=== PATIENT | male | born 1970 | race Caucasian/White ===

== ENCOUNTER 2018-06-24 02:43 | Inpatient (IN) | payer MEDICAID ==
[~2018-06-24] VITALS: Ht 180.3 cm; Wt 81.8 kg
[2018-06-24] MEDS ORDERED: LISINOPRIL2.5 MG (02:46)
[2018-06-24] MEDS ORDERED: GEODON60 MG PO (02:47)
[2018-06-24] MEDS ORDERED: GEODON20 MG (02:47)
[2018-06-24 03:34] LABS: UDS - AMPHET NEGATIVE QUAL (NEGATIVE); UDS - BARB NEGATIVE QUAL (NEGATIVE); UDS - BENZO NEGATIVE QUAL (NEGATIVE); UDS - COCAINE NEGATIVE QUAL (NEGATIVE); UDS - OPIATE NEGATIVE QUAL (NEGATIVE); UDS - PCP NEGATIVE QUAL (NEGATIVE); UDS - THC NEGATIVE QUAL (NEGATIVE)
[2018-06-24 04:34] LABS: BASOPHILS 0.1 % (0-2); EOSINOPHILS 0.7 % (0-7); HEMATOCRIT 35.4 % (42.0-54.0); HEMOGLOBIN 13.2 g/dL (13.5-17.5); IMMATURE GRANULOCYTES 0.8 % (0-5); LYMPHOCYTES 9.1 % (15-50); MCH 32.7 pg (26.0-34.0); MCHC 37.3 g/dL (31.0-37.0); MCV 87.6 fL (80.0-100.0); MEAN PLATELET VOLUME 8.9 fL (7.4-10.4); MONOCYTES 6.2 % (2-11); NEUTROPHILS 83.1 % (40-80); RBC 4.04 10x6/uL (4.20-6.10); RDW 12.3 % (11.5-14.5); WBC 14.5 10x3/uL (4.8-10.8)
[2018-06-24 04:34] LABS: APPEARANCE CLEAR (CLEAR); COLOR STRAW (YELLOW)
[2018-06-24 04:35] LABS: PLATELET COUNT 223 10x3/uL (130-400)
[2018-06-24 04:35] LABS: BILIRUBIN NEGATIVE (NEGATIVE); GLUCOSE 50 mg/dL (NEGATIVE); KETONE NEGATIVE (NEGATIVE); NITRITE NEGATIVE (NEGATIVE); PROTEIN NEGATIVE (NEGATIVE); UROBILINOGEN NORMAL (NORMAL)
[2018-06-24 04:50] LABS: ALKALINE PHOSPHATASE 106 U/L (46-116); ALT (SGPT) 37 U/L (10-68); BILIRUBIN - TOTAL 0.35 mg/dL (0.2-1.3); CALC OSMOLALITY 265 mosm/kg (275-300); CALCIUM 8.3 mg/dL (8.5-10.1); CARBON DIOXIDE 20.2 mmol/L (21.0-32.0); CHLORIDE - SERUM 100 mmol/L (98-107); CREATININE - SERUM 0.9 mg/dL (0.6-1.3); GLUCOSE 106 mg/dL (74-106); POTASSIUM - SERUM 3.8 mmol/L (3.5-5.1); PROTEIN - SERUM 6.7 g/dL (6.4-8.2); SODIUM 133 mmol/L (136-145); UREA NITROGEN 13 mg/dL (7-18); eGFR NON AFRICAN AMERICAN > 90 mL/min (90-120)
[2018-06-24 05:06] LABS: CKMB 5.3 U/L (0.0-3.6); CREATINE KINASE 358 UL (21-232)
[2018-06-24 05:09] LABS: TROPONIN-I 0.142 ng/mL (0.000-0.060)
[2018-06-24 07:01] LABS: BASOPHILS 0.1 % (0-2); EOSINOPHILS 0.6 % (0-7); HEMATOCRIT 34.3 % (42.0-54.0); HEMOGLOBIN 12.7 g/dL (13.5-17.5); IMMATURE GRANULOCYTES 0.5 % (0-5); LYMPHOCYTES 9.9 % (15-50); MCH 32.2 pg (26.0-34.0); MCV 86.8 fL (80.0-100.0); MEAN PLATELET VOLUME 8.9 fL (7.4-10.4); NEUTROPHILS 82.9 % (40-80); PLATELET COUNT 255 10x3/uL (130-400); RBC 3.95 10x6/uL (4.20-6.10); RDW 12.4 % (11.5-14.5); WBC 16.7 10x3/uL (4.8-10.8)
[2018-06-24 07:31] LABS: ALBUMIN 2.9 g/dL (3.4-5.0); ALKALINE PHOSPHATASE 104 U/L (46-116); ALT (SGPT) 38 U/L (10-68); BILIRUBIN - TOTAL 0.41 mg/dL (0.2-1.3); CALC OSMOLALITY 266 mosm/kg (275-300); CALCIUM 8.2 mg/dL (8.5-10.1); CARBON DIOXIDE 18.2 mmol/L (21.0-32.0); CHLORIDE - SERUM 101 mmol/L (98-107); CKMB 4.3 U/L (0.0-3.6); CREATININE - SERUM 0.8 mg/dL (0.6-1.3); GLUCOSE 101 mg/dL (74-106); MAGNESIUM - SERUM 1.8 mg/dL (1.8-2.4); POTASSIUM - SERUM 4.1 mmol/L (3.5-5.1); PROTEIN - SERUM 6.5 g/dL (6.4-8.2); SODIUM 134 mmol/L (136-145); UREA NITROGEN 10 mg/dL (7-18); eGFR NON AFRICAN AMERICAN > 90 mL/min (90-120)
[2018-06-24 07:33] LABS: CREATINE KINASE 454 UL (21-232)
[2018-06-24 11:20] LABS: % SATURATION 72 % (15-55); IRON 183 ug/dl (35-150); TOTAL IRON BIND CAPACITY 251 ug/dl (260-445); UNSAT IRON BIND CAPACITY 68 ug/dl (150-375)
[2018-06-24 11:33] LABS: INR 1.06 (0.85-1.17); PROTIME 13.3 SECONDS (11.6-15.0)
[2018-06-24 12:08] VITALS: BP 147/74
[2018-06-24 12:48] VITALS: BP 148/76; Ht 180.3 cm; Wt 81.8 kg
[2018-06-24 17:29] VITALS: BP 175/92
[2018-06-24 20:00] VITALS: BP 143/93
[2018-06-25 00:30] VITALS: BP 143/92
[2018-06-25 04:30] VITALS: BP 141/97
[2018-06-25 06:11] LABS: BASOPHILS 0 % (0-2); EOSINOPHILS 2.1 % (0-7); HEMATOCRIT 29.8 % (42.0-54.0); HEMOGLOBIN 10.6 g/dL (13.5-17.5); IMMATURE GRANULOCYTES 0.5 % (0-5); LYMPHOCYTES 14.6 % (15-50); MCH 31.9 pg (26.0-34.0); MCHC 35.6 g/dL (31.0-37.0); MEAN PLATELET VOLUME 8.8 fL (7.4-10.4); MONOCYTES 8.3 % (2-11); NEUTROPHILS 74.5 % (40-80); RBC 3.32 10x6/uL (4.20-6.10); RDW 12.6 % (11.5-14.5)
[2018-06-25 06:12] LABS: MCV 89.8 fL (80.0-100.0); PLATELET COUNT 155 10x3/uL (130-400); WBC 6.2 10x3/uL (4.8-10.8)
[2018-06-25 06:35] LABS: CALC OSMOLALITY 273 mosm/kg (275-300); CALCIUM 7.9 mg/dL (8.5-10.1); CARBON DIOXIDE 25.3 mmol/L (21.0-32.0); CHLORIDE - SERUM 105 mmol/L (98-107); CKMB 1.8 U/L (0.0-3.6); CREATINE KINASE 324 UL (21-232); CREATININE - SERUM 0.9 mg/dL (0.6-1.3); GLUCOSE 100 mg/dL (74-106); POTASSIUM - SERUM 4.2 mmol/L (3.5-5.1); SODIUM 137 mmol/L (136-145); UREA NITROGEN 13 mg/dL (7-18); eGFR NON AFRICAN AMERICAN > 90 mL/min (90-120)
[2018-06-25 09:14] VITALS: BP 147/94
[2018-06-25 12:17] VITALS: BP 151/106
[2018-06-25 13:12] LABS: FOLATE (FOLIC ACID) - SERUM 10.5 ng/mL (>3.0)
[2018-06-25 16:33] VITALS: BP 173/98
--- NOTE | 2018-06-25 16:36 | MORECARE ---
CASE MANAGEMENT DISCHARGE SUMMARY PATIENT: MARCO RIVERS UNIT: [id number] ADM DATE: 06/24/18 AGE: 48 : 66 SEX: M ROOM/BED: D.2217 AUTHOR: SWAPNA JOHNSTON PHYSICIAN: REFERRING PHYSICIAN: POPPY WHITE MD DATE OF SERVICE: 06/25/18 Discharge Plan Patient Name: MARCO RIVERS Facility: [facility]:[place] : 1970 Planned Disposition: Anticipated Discharge Date: Discharge Date: Expected LOS: Initial Reviewer: [email or web address] Initial Review Date: 06/24/2018 Generated: 06/25/18 5:35 pm Patient Name: MARCO RIVERS Page 04433 at 1636 All edits/amendments must be made on the electronic document DICTATION DATE: 06/25/18 163 PASSENGER FLAGMAN: REBEKAH 06/25/18 1635 RPT#: [id number] DC DATE: STATUS: ADM IN [facility] [address] [place] [address] END OF REPORT
--- NOTE | 2018-06-25 16:44 | MORECARE ---
CASE MANAGEMENT DISCHARGE SUMMARY PATIENT: MARCO RIVERS UNIT: [id number] ADM DATE: 06/24/18 AGE: 48 : 66 SEX: M ROOM/BED: D.2217 AUTHOR: SWAPNA JOHNSTON PHYSICIAN: REFERRING PHYSICIAN: POPPY WHITE MD DATE OF SERVICE: 06/25/18 Discharge Plan Patient Name: MARCO RIVERS [facility] : 1970 Planned Disposition: Anticipated Discharge Date: Discharge Date: Expected LOS: Initial Reviewer: [email or web address] Initial Review Date: 06/24/2018 Generated: 06/25/18 5:43 pm DCPIA - Discharge Planning Initial Assessment Updated by [email or web address]: Jie Naranjo on 06/25/18 4:41 pm * Is the patient Alert and Oriented? Yes * PCP NICHOLE MARTELL * [facility] * Preadmission Environment Homeless * ADLs Independent * Equipment None * List name and contact numbers for known caregivers / representatives who currently or will assist patient after discharge: MALIHA SIMMS JOSH ([phone]) * Verbal permission to speak to the caregivers and representatives has been obtained from the patient. N/A * Community resources currently utilized None * Additional services required to return to the preadmission environment? Yes * Can the patient safely return to the preadmission environment? Yes * Has this patient been hospitalized within the prior 30 days at any hospital? No Last DP export: 06/25/18 3:35 pm Patient Name: MARCO RIVERS Page 19884 at 1644 All edits/amendments must be made on the electronic document DICTATION DATE: 06/25/181642 MANAGER TALENT ACQUISITION: REBEKAH 06/25/181642 RPT#: [id number] DC DATE: STATUS: ADM IN [facility] [address] [place] [address] END OF REPORT
--- NOTE | 2018-06-25 16:52 | MORECARE ---
CASE MANAGEMENT DISCHARGE SUMMARY PATIENT: MARCO RIVERS UNIT: [id number] ADM DATE: 06/24/18 AGE: 48 : 66 SEX: M ROOM/BED: D.2217 AUTHOR: PRESTON,DOC PHYSICIAN: REFERRING PHYSICIAN: POPPY WHITE MD DATE OF SERVICE: 06/25/18 Discharge Plan Patient Name: MARCO RIVERS Facility: [facility]:[place] : 1970 Planned Disposition: Anticipated Discharge Date: Discharge Date: Expected LOS: Initial Reviewer: [email or web address] Initial Review Date: 06/24/2018 Generated: 06/25/18 5:52 pm Comments DCP- Discharge Planning Updated by [email or web address]: Jie Naranjo on 06/25/18 3:[address] Patient Name: MARCO RIVERS Admission Status: ER Accout number: [id number] Admission Date: 06-24-2018 : 1970 Admission Diagnosis: Attending: POPPY WHITE Current LOS: 1 Anticipated DC Date: Planned Disposition: Primary Insurance: MEDICAID [place] Discharge Planning Comments: CM met with patient to complete initial dc planning assessment. CM educated patient on the CM role and verbal consent given by patient to complete assessment. Patient stated that is mailing address is [address] [place] [address], but he does not stay there. I asked if he was homeless and he said yes. He was in long term a week ago and was suppose to go to [facility], but they never showed up/ or called him??? I asked him if he has any family he stated no, I asked him if there was any friend he could stay with and he said Kody Scales, but will need a taxi. He denies any street drugs, but states he has a ETOH problems and would like help. I attempted to call the [facility], but did not get an answer. He stated he gets a $771.00 check a month. He stated he is on disability for Bipolar Depression. I will try [facility] tomorrow to see if he is still approved for there for treatment. He stated that they approved him when he was in [place]. Patient denied known discharge needs at this time. CM will continue to follow and will assist as needed with dc plans/needs. Fastener Technologist: Jie Naranjo DCPIA - Discharge Planning Initial Assessment Updated by [email or web address]: Jie Naranjo on 06/25/18 4:41 pm * Is the patient Alert and Oriented? Yes * PCP NICHOLE MARTELL * [facility]acy [facility] * Preadmission Environment Homeless * ADLs Independent * Equipment None * List name and contact numbers for known caregivers / representatives who currently or will assist patient after discharge: KODY CHON DEMI JOSH ([phone]) * Verbal permission to speak to the caregivers and representatives has been obtained from the patient. N/A * Community resources currently utilized None * Additional services required to return to the preadmission environment? Yes * Can the patient safely return to the preadmission environment? Yes * Has this patient been hospitalized within the prior 30 days at any hospital? No Last DP export: 06/25/18 3:44 pm Patient Name: MARCO RIVERS Page 28529 at 1652 All edits/amendments must be made on the electronic document DICTATION DATE: 06/25/181650 SILK SCREEN LAYOUT DRAFTER: REBEKAH 06/25/181650 RPT#: [id number] DC DATE: STATUS: ADM IN [facility] [address] [place] [address] END OF REPORT
[2018-06-25 20:03] VITALS: BP 146/86
[2018-06-26 00:23] VITALS: BP 150/82
[2018-06-26 05:18] LABS: BASOPHILS 0.1 % (0-2); EOSINOPHILS 3.7 % (0-7); HEMATOCRIT 28.1 % (42.0-54.0); HEMOGLOBIN 9.7 g/dL (13.5-17.5); IMMATURE GRANULOCYTES 0.6 % (0-5); LYMPHOCYTES 15.9 % (15-50); MCH 31.5 pg (26.0-34.0); MCHC 34.5 g/dL (31.0-37.0); MCV 91.2 fL (80.0-100.0); MEAN PLATELET VOLUME 8.7 fL (7.4-10.4); MONOCYTES 8.2 % (2-11); NEUTROPHILS 71.5 % (40-80); PLATELET COUNT 158 10x3/uL (130-400); RBC 3.08 10x6/uL (4.20-6.10); RDW 12.4 % (11.5-14.5); WBC 6.9 10x3/uL (4.8-10.8)
[2018-06-26 05:19] VITALS: BP 145/94
[2018-06-26 05:43] LABS: CALC OSMOLALITY 274 mosm/kg (275-300); CALCIUM 7.8 mg/dL (8.5-10.1); CARBON DIOXIDE 25.4 mmol/L (21.0-32.0); CHLORIDE - SERUM 106 mmol/L (98-107); CREATINE KINASE 295 UL (21-232); CREATININE - SERUM 0.9 mg/dL (0.6-1.3); GLUCOSE 97 mg/dL (74-106); POTASSIUM - SERUM 4.1 mmol/L (3.5-5.1); SODIUM 138 mmol/L (136-145); UREA NITROGEN 10 mg/dL (7-18); eGFR NON AFRICAN AMERICAN > 90 mL/min (90-120)
[2018-06-26 08:04] VITALS: BP 148/91
--- NOTE | 2018-06-26 11:40 | MORECARE ---
CASE MANAGEMENT DISCHARGE SUMMARY PATIENT: MARCO RIVERS UNIT: [id number] ADM DATE: 06/24/18 AGE: 48 : 66 SEX: M ROOM/BED: D.2217 AUTHOR: PRESTON,DOC PHYSICIAN: REFERRING PHYSICIAN: POPPY WHITE MD DATE OF SERVICE: 06/26/18 Discharge Plan Patient Name: MARCO RIVERS Facility: [facility]:[place] : 1970 Planned Disposition: Anticipated Discharge Date: Discharge Date: Expected LOS: Initial Reviewer: [email or web address] Initial Review Date: 06/24/2018 Generated: 06/26/18 12:40 pm Comments DCP- Discharge Planning Updated by [email or web address]: Jie Naranjo on 06/26/18 10:[address] SPOKE WITH ALPHONSO AT [facility] SHE STATED THAT THEY COULD SEE HIM ON A OUTPATIENT BASIS, BUT THEY DO NOT HAVE FUNDING FOR NICHOLE PATIENTS AT THIS TIME. SHE SENT ME A SCREENING TOOL FOR THE PATIENT FOR AN OUTPATIENT BASIS IF NEEDED DCP- Discharge Planning Updated by [email or web address]: Jie Naranjo on 06/25/18 3:[address] Patient Name: MARCO RIVERS Admission Status: ER Accout number: [id number] Admission Date: 06-24-2018 : 1970 Admission Diagnosis: Attending: POPPY WHITE Current LOS: 1 Anticipated DC Date: Planned Disposition: Primary Insurance: MEDICAID [place] Discharge Planning Comments: CM met with patient to complete initial dc planning assessment. CM educated patient on the CM role and verbal consent given by patient to complete assessment. Patient stated that is mailing address is [address] [place] [address], but he does not stay there. I asked if he was homeless and he said yes. He was in long term a week ago and was suppose to go to [facility], but they never showed up/ or called him??? I asked him if he has any family he stated no, I asked him if there was any friend he could stay with and he said Kody Walker, but will need a taxi. He denies any street drugs, but states he has a ETOH problems and would like help. I attempted to call the [facility], but did not get an answer. He stated he gets a $771.00 check a month. He stated he is on disability for Bipolar Depression. I will try [facility] tomorrow to see if he is still approved for there for treatment. He stated that they approved him when he was in [place]. Patient denied known discharge needs at this time. CM will continue to follow and will assist as needed with dc plans/needs. Insurance Job Titles: Jie Naranjo DCPIA - Discharge Planning Initial Assessment Updated by [email or web address]: Jie Naranjo on 06/25/18 4:41 pm * Is the patient Alert and Oriented? Yes * PCP NICHOLE MARTELL * Pharmacy [facility] * Preadmission Environment Homeless * ADLs Independent * Equipment None * List name and contact numbers for known caregivers / representatives who currently or will assist patient after discharge: KODY GIVENS DEMI MAY ([phone]) * Verbal permission to speak to the caregivers and representatives has been obtained from the patient. N/A * Community resources currently utilized None * Additional services required to return to the preadmission environment? Yes * Can the patient safely return to the preadmission environment? Yes * Has this patient been hospitalized within the prior 30 days at any hospital? No Last DP export: 06/25/18 3:52 pm Patient Name: MARCO RIVERS Page 83157 at 1140 All edits/amendments must be made on the electronic document DICTATION DATE: 06/26/18 113 CEMENT FINISHING SUPERVISOR: REBEKAH 06/26/18 113 RPT#: [id number] DC DATE: STATUS: ADM IN [facility] [address] [place] [address] END OF REPORT
[2018-06-26 13:09] VITALS: BP 157/100
[2018-06-26 21:08] VITALS: BP 134/86
[2018-06-27] VITALS: BP 155/91
[2018-06-27 03:00] VITALS: BP 144/82
[2018-06-27 05:42] LABS: BASOPHILS 0 % (0-2); EOSINOPHILS 0.1 % (0-7); HEMATOCRIT 23.6 % (42.0-54.0); HEMOGLOBIN 8.4 g/dL (13.5-17.5); IMMATURE GRANULOCYTES 0.7 % (0-5); LYMPHOCYTES 5.1 % (15-50); MCH 32.1 pg (26.0-34.0); MCHC 35.6 g/dL (31.0-37.0); MCV 90.1 fL (80.0-100.0); MEAN PLATELET VOLUME 8.7 fL (7.4-10.4); MONOCYTES 4.9 % (2-11); NEUTROPHILS 89.2 % (40-80); PLATELET COUNT 154 10x3/uL (130-400); RBC 2.62 10x6/uL (4.20-6.10); RDW 12.5 % (11.5-14.5); WBC 8.6 10x3/uL (4.8-10.8)
[2018-06-27 05:58] LABS: CALC OSMOLALITY 278 mosm/kg (275-300); CALCIUM 7.8 mg/dL (8.5-10.1); CARBON DIOXIDE 24.8 mmol/L (21.0-32.0); CHLORIDE - SERUM 108 mmol/L (98-107); CREATININE - SERUM 0.9 mg/dL (0.6-1.3); GLUCOSE 136 mg/dL (74-106); POTASSIUM - SERUM 4.6 mmol/L (3.5-5.1); SODIUM 139 mmol/L (136-145); UREA NITROGEN 10 mg/dL (7-18); eGFR NON AFRICAN AMERICAN > 90 mL/min (90-120)
[2018-06-27 09:09] VITALS: BP 165/96
--- NOTE | 2018-06-27 11:49 | OP ---
PATIENT NAME: MARCO RIVERS MEDICAL RECORD: [id number] :66 LOCATION:D.MS [facility]2217 ADMISSION DATE:06/24/18 SURGEON: MIK JAIN DO DATE OF OPERATION: 06/26/2018 PROCEDURE PERFORMED: Right reverse total shoulder arthroplasty for fracture. PREOPERATIVE DIAGNOSIS: Right proximal humerus fracture, comminuted, and displaced 100%. POSTOPERATIVE DIAGNOSIS: Right proximal humerus fracture, comminuted, and displaced 100%. INDICATIONS: Mr. Rivers is a 48-year-old male who he says fell or jumped off a bridge sometime Friday morning or Friday evening and showed up to the hospital, he had suffered a severe comminuted right proximal humerus fracture as mentioned. On initial x-rays, it looks as though humeral head was intact, did not get a CT scan. He has consented for open reduction and internal fixation with other procedures as indicated. The patient was informed of the risks and benefits of the procedure including infection, bleeding, damage to nerve or vessels, need for further surgery, continued pain with that shoulder and lack of motion. He was aware of those risks and signed the consent. SURGEON: Mik Jain DO DESCRIPTION OF THE PROCEDURE: The patient received a block per anesthesia in the preoperative area and taken to the operative suite, laid in the supine position, given general anesthetic, was then sedated and intubated. He was given 2 grams Ancef preoperatively. The patient was then positioned in the beach chair and the right shoulder was then prepped and draped in the sterile fashion. A timeout was performed and everybody was in agreeance as correct site, side, patient, and procedure. Incision began in the deltopectoral interval. Careful dissection was made down to the fracture site noting the humeral shaft extruding almost through the deltopectoral interval. This is opened up, the proximal centimeter of the pec was then released and the bicep was tenodesed to that and then tenotomized proximal to that. This is a very comminuted fracture and tried attempted reduction for quite some time with fluoroscopy and noting the comminution and the bone loss of the humeral head, decided to go to reverse the fracture. The rotator cuffs were damaged as well and a piece of them were off with a comminuted fracture. Once the decision was made, the subscap was peeled off and the supraspinatus well of the bone fragments that they were on and these were tagged with #2 Ethibond. The glenoid was then prepped with a centering pin and then reamed and the baseplate was then impacted in and then a central screw of 35 mm, central screw was placed and had a very good bite. The 3 peripheral screws were made. The posterior-superior, anterior-inferior, and anterior-superior were put in, then the glenosphere was impacted on and secured into place. Once was then packed into place, the humeral stem was reamed and then the #10 stem was the size to use and it got tight. We then trialed off the trial stem and seemed to be in good position. The cement was then mixed and a cement stopper was placed down the stem. Cement was then put in the canal and the #8 cemented stem was placed in and held at 30 degrees of version with the forearm as the cement OPERATIVE REPORT [id number] MARCO RIVERS dried. Once the cement dried, we trialed standard humeral tray and this fit very well and had a good tightness of the conjoined tendon as well as the deltoid fibers and this was then dislocated and the actual implant was put in and tacked into place and reduced, again having good fixation and good tightness of the conjoined tendon and deltoid fibers. Then, the tagged supraspinatus and subscapularis were tied to the stem with #2 Ethibond. This wound was then irrigated very thoroughly with Bactisure and then a liter and a half of normal saline and Surgicel powder was placed in the wound and then, the deltopectoral interval was closed with a #1 Vicryl in a simple fashion and then skin was closed with 2-0 Vicryl in an inverted interrupted fashion and Prineo was placed on the skin. Blood loss approximately 500 mL. COMPLICATIONS: None. ANESTHESIA: Spinal. TRANSINT:[id number] Voice Confirmation ID: [id number] DOCUMENT ID: [id number] MIK JAIN DO at 1149 CC: [id number] DICTATION DATE: 06/26/181957 CASINO CASHIER: 06/27/18 [address] [facility] [address] [facility] [address] [place] [address]
[2018-06-27 12:50] VITALS: BP 164/75
[2018-06-27 16:06] LABS: % SATURATION 19 % (15-55); IRON 34 ug/dl (35-150); TOTAL IRON BIND CAPACITY 178 ug/dl (260-445); UNSAT IRON BIND CAPACITY 144 ug/dl (150-375)
[2018-06-27 17:57] VITALS: BP 158/86
[2018-06-27 19:28] LABS: HEMATOCRIT 22.5 % (42.0-54.0); HEMOGLOBIN 7.9 g/dL (13.5-17.5)
[2018-06-27 20:15] VITALS: BP 152/81
[2018-06-28 00:20] VITALS: BP 150/75
[2018-06-28 01:37] LABS: HEMATOCRIT 21.1 % (42.0-54.0)
[2018-06-28 01:45] LABS: HEMOGLOBIN 7.4 g/dL (13.5-17.5)
[2018-06-28 05:55] VITALS: BP 163/90
[2018-06-28 06:57] LABS: BASOPHILS 0 % (0-2); EOSINOPHILS 3.1 % (0-7); HEMATOCRIT 21.5 % (42.0-54.0); IMMATURE GRANULOCYTES 1.4 % (0-5); LYMPHOCYTES 19.4 % (15-50); MCH 31.9 pg (26.0-34.0); MCHC 34.9 g/dL (31.0-37.0); MCV 91.5 fL (80.0-100.0); MEAN PLATELET VOLUME 8.2 fL (7.4-10.4); MONOCYTES 7.5 % (2-11); NEUTROPHILS 68.6 % (40-80); PLATELET COUNT 128 10x3/uL (130-400); RBC 2.35 10x6/uL (4.20-6.10); RDW 12.6 % (11.5-14.5); WBC 5.7 10x3/uL (4.8-10.8)
[2018-06-28 06:59] LABS: HEMOGLOBIN 7.5 g/dL (13.5-17.5)
[2018-06-28 07:08] LABS: CALCIUM 7.7 mg/dL (8.5-10.1); CARBON DIOXIDE 26.9 mmol/L (21.0-32.0); CHLORIDE - SERUM 107 mmol/L (98-107); GLUCOSE 105 mg/dL (74-106); SODIUM 139 mmol/L (136-145); eGFR NON AFRICAN AMERICAN 84 mL/min (90-120)
[2018-06-28 07:09] LABS: CALC OSMOLALITY 275 mosm/kg (275-300); POTASSIUM - SERUM 3.7 mmol/L (3.5-5.1); UREA NITROGEN 6 mg/dL (7-18)
[2018-06-28 08:13] VITALS: BP 151/89
[2018-06-28 12:37] VITALS: BP 148/92
[2018-06-28 16:29] VITALS: BP 177/103
--- NOTE | 2018-06-28 17:26 | MORECARE ---
CASE MANAGEMENT DISCHARGE SUMMARY PATIENT: MARCO RIVERS UNIT: [id number] ADM DATE: 06/24/18 AGE: 48 : 66 SEX: M ROOM/BED: D.2217 AUTHOR: PRESTON,DOC PHYSICIAN: REFERRING PHYSICIAN: POPPY WHITE MD DATE OF SERVICE: 06/28/18 Discharge Plan Patient Name: MARCO RIVERS Facility: [facility]:[place] : 1970 Planned Disposition: Anticipated Discharge Date: Discharge Date: Expected LOS: Initial Reviewer: [email or web address] Initial Review Date: 06/24/2018 Generated: 06/28/18 6:26 pm Comments DCP- Discharge Planning Updated by [email or web address]: Jessica Kenney on 06/28/18 4:[address] CASE MANGEMENT CONSULT RECEIVED FOR DISCHARGE PLANNING. THIS PATIENT HAS BEEN ASSESSED AND CASE MANGEMENT IS WORKING WITH HIM ON A DISCHARGE PLAN. DCP- Discharge Planning Updated by [email or web address]: Jie Naranjo on 06/26/18 10:[address] SPOKE WITH ALPHONSO AT [facility] SHE STATED THAT THEY COULD SEE HIM ON A OUTPATIENT BASIS, BUT THEY DO NOT HAVE FUNDING FOR NICHOLE PATIENTS AT THIS TIME. SHE SENT ME A SCREENING TOOL FOR THE PATIENT FOR AN OUTPATIENT BASIS IF NEEDED DCP- Discharge Planning Updated by [email or web address]: Jie Naranjo on 06/25/18 3:[address] Patient Name: MARCO RIVERS Admission Status: ER Accout number: [id number] Admission Date: 06-24-2018 : 1970 Admission Diagnosis: Attending: POPPY WHITE Current LOS: 1 Anticipated DC Date: Planned Disposition: Primary Insurance: MEDICAID [place] Discharge Planning Comments: CM met with patient to complete initial dc planning assessment. CM educated patient on the CM role and verbal consent given by patient to complete assessment. Patient stated that is mailing address is [address] [place] [address], but he does not stay there. I asked if he was homeless and he said yes. He was in shelter a week ago and was suppose to go to [facility], but they never showed up/ or called him??? I asked him if he has any family he stated no, I asked him if there was any friend he could stay with and he said Kody Scales, but will need a taxi. He denies any street drugs, but states he has a ETOH problems and would like help. I attempted to call the [facility], but did not get an answer. He stated he gets a $771.00 check a month. He stated he is on disability for Bipolar Depression. I will try [facility] tomorrow to see if he is still approved for there for treatment. He stated that they approved him when he was in Nursing Home. Patient denied known discharge needs at this time. CM will continue to follow and will assist as needed with dc plans/needs. Personnel Supervisor: Jie Naranjo DCPIA - Discharge Planning Initial Assessment Updated by [email or web address]: Jie Naranjo on 06/25/18 4:41 pm * Is the patient Alert and Oriented? Yes * PCP NICHOLE MARTELL * [facility] * Preadmission Environment Homeless * ADLs Independent * Equipment None * List name and contact numbers for known caregivers / representatives who currently or will assist patient after discharge: KODY MORENO ([phone]) * Verbal permission to speak to the caregivers and representatives has been obtained from the patient. N/A * Community resources currently utilized None * Additional services required to return to the preadmission environment? Yes * Can the patient safely return to the preadmission environment? Yes * Has this patient been hospitalized within the prior 30 days at any hospital? No Last DP export: 06/26/18 10:40 a Patient Name: MARCO RIVERS Page 90660 at 1726 All edits/amendments must be made on the electronic document DICTATION DATE: 06/28/181724 EMPLOYEE DEVELOPMENT MANAGER: REBEKAH 06/28/181724 RPT#: [id number] DC DATE: STATUS: ADM IN [facility] [address] [place] [address] END OF REPORT
[2018-06-28 19:21] LABS: HEMATOCRIT 28.2 % (42.0-54.0); HEMOGLOBIN 9.8 g/dL (13.5-17.5)
[2018-06-28 21:07] VITALS: BP 174/93
[2018-06-29 02:59] LABS: BASOPHILS 0.2 % (0-2); EOSINOPHILS 3.5 % (0-7); HEMOGLOBIN 9.7 g/dL (13.5-17.5); IMMATURE GRANULOCYTES 2.1 % (0-5); MCHC 34.6 g/dL (31.0-37.0); MEAN PLATELET VOLUME 8.3 fL (7.4-10.4); NEUTROPHILS 65.2 % (40-80); PLATELET COUNT 129 10x3/uL (130-400); RDW 13.8 % (11.5-14.5); WBC 6.6 10x3/uL (4.8-10.8)
[2018-06-29 03:10] LABS: MCV 89.5 fL (80.0-100.0); RBC 3.13 10x6/uL (4.20-6.10)
[2018-06-29 03:16] LABS: CALC OSMOLALITY 275 mosm/kg (275-300); CALCIUM 8.1 mg/dL (8.5-10.1); CARBON DIOXIDE 26.9 mmol/L (21.0-32.0); CHLORIDE - SERUM 107 mmol/L (98-107); CREATININE - SERUM 0.9 mg/dL (0.6-1.3); GLUCOSE 89 mg/dL (74-106); POTASSIUM - SERUM 3.8 mmol/L (3.5-5.1); SODIUM 139 mmol/L (136-145); eGFR NON AFRICAN AMERICAN > 90 mL/min (90-120)
[2018-06-29 03:22] LABS: UREA NITROGEN 9 mg/dL (7-18)
[2018-06-29 05:36] VITALS: BP 160/85
[2018-06-29 08:09] VITALS: BP 118/64
[2018-06-29 10:13] LABS: HEMOGLOBIN 10.5 g/dL (13.5-17.5)
[2018-06-29 12:11] VITALS: BP 175/91
[2018-06-29 15:41] VITALS: BP 177/99
[2018-06-29 17:33] LABS: HEMOGLOBIN 12.6 g/dL (13.5-17.5)
[2018-06-29 17:39] LABS: HEMATOCRIT 36.6 % (42.0-54.0)
[2018-06-29 20:52] VITALS: BP 211/89
[2018-06-30 00:53] VITALS: BP 182/76
[2018-06-30 05:42] VITALS: BP 198/95
[2018-06-30 06:46] LABS: ALBUMIN 2.4 g/dL (3.4-5.0); ALKALINE PHOSPHATASE 94 U/L (46-116); ALT (SGPT) 20 U/L (10-68); BILIRUBIN - TOTAL 1.03 mg/dL (0.2-1.3); CALC OSMOLALITY 276 mosm/kg (275-300); CALCIUM 8.4 mg/dL (8.5-10.1); CARBON DIOXIDE 27.7 mmol/L (21.0-32.0); CHLORIDE - SERUM 105 mmol/L (98-107); CREATININE - SERUM 0.9 mg/dL (0.6-1.3); GLUCOSE 97 mg/dL (74-106); POTASSIUM - SERUM 3.9 mmol/L (3.5-5.1); SODIUM 139 mmol/L (136-145); UREA NITROGEN 10 mg/dL (7-18); eGFR NON AFRICAN AMERICAN > 90 mL/min (90-120)
[2018-06-30 07:21] LABS: BASOPHILS 0.1 % (0-2); EOSINOPHILS 3.2 % (0-7); HEMOGLOBIN 10.1 g/dL (13.5-17.5); IMMATURE GRANULOCYTES 2.1 % (0-5); LYMPHOCYTES 13.4 % (15-50); MCH 31.8 pg (26.0-34.0); MCHC 35.4 g/dL (31.0-37.0); MCV 89.6 fL (80.0-100.0); MEAN PLATELET VOLUME 8.6 fL (7.4-10.4); MONOCYTES 10.9 % (2-11); NEUTROPHILS 70.3 % (40-80); PLATELET COUNT 123 10x3/uL (130-400); RBC 3.18 10x6/uL (4.20-6.10); RDW 13.7 % (11.5-14.5); WBC 6.8 10x3/uL (4.8-10.8)
[2018-06-30 07:22] LABS: HEMATOCRIT 28.5 % (42.0-54.0)
[2018-06-30 09:13] VITALS: BP 129/71
[2018-06-30 12:46] LABS: HEMATOCRIT 29.5 % (42.0-54.0); HEMOGLOBIN 10.3 g/dL (13.5-17.5)
[2018-06-30 14:08] VITALS: BP 174/101
[2018-06-30 17:47] VITALS: BP 171/91
[2018-06-30 19:17] LABS: HEMATOCRIT 28.7 % (42.0-54.0); HEMOGLOBIN 10.1 g/dL (13.5-17.5)
[2018-06-30 21:18] VITALS: BP 175/95
[2018-07-01 01:20] VITALS: BP 175/95
[2018-07-01 05:06] LABS: BASOPHILS 0.2 % (0-2); EOSINOPHILS 3.2 % (0-7); HEMATOCRIT 27.8 % (42.0-54.0); HEMOGLOBIN 9.7 g/dL (13.5-17.5); IMMATURE GRANULOCYTES 2.1 % (0-5); LYMPHOCYTES 16.1 % (15-50); MCH 31.1 pg (26.0-34.0); MCHC 34.9 g/dL (31.0-37.0); MCV 89.1 fL (80.0-100.0); MEAN PLATELET VOLUME 8.2 fL (7.4-10.4); NEUTROPHILS 67.4 % (40-80); PLATELET COUNT 112 10x3/uL (130-400); RBC 3.12 10x6/uL (4.20-6.10); RDW 13.9 % (11.5-14.5); WBC 6.3 10x3/uL (4.8-10.8)
[2018-07-01 05:26] LABS: ALBUMIN 2.4 g/dL (3.4-5.0); ALKALINE PHOSPHATASE 91 U/L (46-116); CALC OSMOLALITY 274 mosm/kg (275-300); CALCIUM 8.4 mg/dL (8.5-10.1); CARBON DIOXIDE 26.4 mmol/L (21.0-32.0); CHLORIDE - SERUM 106 mmol/L (98-107); CREATININE - SERUM 0.9 mg/dL (0.6-1.3); GLUCOSE 95 mg/dL (74-106); POTASSIUM - SERUM 3.8 mmol/L (3.5-5.1); PROTEIN - SERUM 5.7 g/dL (6.4-8.2); SODIUM 138 mmol/L (136-145); UREA NITROGEN 11 mg/dL (7-18); eGFR NON AFRICAN AMERICAN > 90 mL/min (90-120)
[2018-07-01 05:27] LABS: ALT (SGPT) 26 U/L (10-68)
[2018-07-01 05:58] VITALS: BP 179/99
[2018-07-01 09:47] VITALS: BP 177/106
[2018-07-01] MEDS ORDERED: LISINOPRIL10 MG PO (09:57)
[2018-07-01] MEDS ORDERED: CATAPRES0.1 MG PO (09:57)
[2018-07-01] MEDS ORDERED: FOLIC ACID1 MG PO (09:58)
[2018-07-01] MEDS ORDERED: VITAMIN B-1100 M1 PO (09:58)
--- NOTE | 2018-07-01 11:37 | MORECARE ---
CASE MANAGEMENT DISCHARGE SUMMARY PATIENT: MARCO RIVERS UNIT: [id number] ADM DATE: 06/24/18 AGE: 48 : 66 SEX: M ROOM/BED: D.2217 AUTHOR: PRESTONDOC PHYSICIAN: REFERRING PHYSICIAN: POPPY WHITE MD DATE OF SERVICE: 07/01/18 Discharge Plan Patient Name: MARCO RIVERS Facility: [facility]:[place] : 1970 Planned Disposition: Anticipated Discharge Date: Discharge Date: Expected LOS: Initial Reviewer: [email or web address] Initial Review Date: 06/24/2018 Generated: 07/01/18 12:37 pm Comments DCP- Discharge Planning Updated by [email or web address]: Jie Naranjo on 07/01/18 10:[address] Patient will be discharging today to [address] [place] [address]. is providing a taxi to get him to this address. The cost is 8.00 and was approved by Perla Ann. I also giving him 2 bus tickets to get to the dr's appointment. I have explained all to the patient, patient's nurse and the dc coordinator. DCP- Discharge Planning Updated by [email or web address]: Jessica Kenney on 06/28/18 4:[address] CASE MANGARGENTINA CONSULT RECEIVED FOR DISCHARGE PLANNING. THIS PATIENT HAS BEEN ASSESSED AND CASE JAZMIN IS WORKING WITH HIM ON A DISCHARGE PLAN. DCP- Discharge Planning Updated by [email or web address]: Jie Naranjo on 06/26/18 10:[address] SPOKE WITH ALPHONSO AT [facility] SHE STATED THAT THEY COULD SEE HIM ON A OUTPATIENT BASIS, BUT THEY DO NOT HAVE FUNDING FOR NICHOLE PATIENTS AT THIS TIME. SHE SENT ME A SCREENING TOOL FOR THE PATIENT FOR AN OUTPATIENT BASIS IF NEEDED DCP- Discharge Planning Updated by [email or web address]: Jie Naranjo on 06/25/18 3:[address] Patient Name: MARCO RIVERS Admission Status: ER Accout number: [id number] Admission Date: 06-24-2018 : 1970 Admission Diagnosis: Attending: POPPY WHITE Current LOS: 1 Anticipated DC Date: Planned Disposition: Primary Insurance: MEDICAID [place] Discharge Planning Comments: CM met with patient to complete initial dc planning assessment. CM educated patient on the CM role and verbal consent given by patient to complete assessment. Patient stated that is mailing address is [address], but he does not stay there. I asked if he was homeless and he said yes. He was in [facility]f a week ago and was suppose to go to [facility], but they never showed up/ or called him??? I asked him if he has any family he stated no, I asked him if there was any friend he could stay with and he said Kody Scales, but will need a taxi. He denies any street drugs, but states he has a ETOH problems and would like help. I attempted to call the [facility], but did not get an answer. He stated he gets a $771.00 check a month. He stated he is on disability for Bipolar Depression. I will try [facility] tomorrow to see if he is still approved for there for treatment. He stated that they approved him when [facility] was in [facility]. Patient denied known discharge needs at this time. CM will continue to follow and will assist as needed with dc plans/needs. Hotel Casino Floorperson: Jie Naranjo DCPIA - Discharge Planning Initial Assessment Updated by [email or web address]: Jie Naranjo on 06/25/18 4:41 pm * Is the patient Alert and Oriented? Yes * PCP NICHOLE MARTELL * Pharmacy [facility] * Preadmission Environment Homeless * ADLs Independent * Equipment None * List name and contact numbers for known caregivers / representatives who currently or will assist patient after discharge: KODY SIMMS JUNE ([phone]) * Verbal permission to speak to the caregivers and representatives has been obtained from the patient. N/A * Community resources currently utilized None * Additional services required to return to the preadmission environment? Yes * Can the patient safely return to the preadmission environment? Yes * Has this patient been hospitalized within the prior 30 days at any hospital? No Last DP export: 06/28/18 4:26 p Patient Name: MARCO RIVERS Page 06867 at 1138 All edits/amendments must be made on the electronic document DICTATION DATE: 07/01/[address] DESIGNER: DM 07/01/18 1137 RPT#: [id number] DC DATE: STATUS: ADM IN [facility] [address] [place] [address] END OF REPORT
[2018-07-01] MEDS ORDERED: HYDROCODON-ACE1 EA10 PO (12:59)
--- NOTE | 2018-07-02 16:48 | MORECARE ---
CASE MANAGEMENT DISCHARGE SUMMARY PATIENT: MARCO RIVERS UNIT: [id number] ADM DATE: 06/24/18 AGE: 48 : 66 SEX: M ROOM/BED: D.2217 AUTHOR: SWAPNA JOHNSTON PHYSICIAN: REFERRING PHYSICIAN: POPPY WHITE MD DATE OF SERVICE: 07/02/18 Discharge Plan Patient Name: MARCO RIVERS Facility: [facility]:[place] : 1970 Planned Disposition: Anticipated Discharge Date: Discharge Date: 07/01/2018 Expected LOS: 0 Initial Reviewer: [email or web address] Initial Review Date: 06/24/2018 Generated: 07/02/18 5:48 pm Comments DCP- Discharge Planning Updated by [email or web address]: Jie Naranjo on 07/01/18 10:[address] Patient will be discharging today to [address] [place] [address]. is providing a taxi to get him to this address. The cost is 8.00 and was approved by Perla Ann. I also giving him 2 bus tickets to get to the dr's appointment. I have explained all to the patient, patient's nurse and the dc coordinator. DCP- Discharge Planning Updated by [email or web address]: Jessica Kenney on 06/28/18 4:[address] CASE MANGARGENTINA CONSULT RECEIVED FOR DISCHARGE PLANNING. THIS PATIENT HAS BEEN ASSESSED AND CASE JAZMIN IS WORKING WITH HIM ON A DISCHARGE PLAN. DCP- Discharge Planning Updated by [email or web address]: Jie Naranjo on 06/26/18 10:[address] SPOKE WITH ALPHONSO AT [facility] SHE STATED THAT THEY COULD SEE HIM ON A OUTPATIENT BASIS, BUT THEY DO NOT HAVE FUNDING FOR NICHOLE PATIENTS AT THIS TIME. SHE SENT ME A SCREENING TOOL FOR THE PATIENT FOR AN OUTPATIENT BASIS IF NEEDED DCP- Discharge Planning Updated by [email or web address]: Jie Naranjo on 06/25/18 3:[address] Patient Name: MARCO RIVERS Admission Status: ER Accout number: [id number] Admission Date: 06-24-2018 : 1970 Admission Diagnosis: Attending: POPPY WHITE Current LOS: 1 Anticipated DC Date: Planned Disposition: Primary Insurance: MEDICAID [place] Discharge Planning Comments: CM met with patient to complete initial dc planning assessment. CM educated patient on the CM role and verbal consent given by patient to complete assessment. Patient stated that is mailing address is [address], but he does not stay there. I asked if he was homeless and he said yes. He was in [facility] a week ago and was suppose to go to [facility], but they never showed up/ or called him??? I asked him if he has any family he stated no, I asked him if there was any friend he could stay with and he said Kody Scales, but will need a taxi. He denies any street drugs, but states he has a ETOH problems and would like help. I attempted to call the [facility], but did not get an answer. He stated he gets a $771.00 check a month. He stated he is on disability for Bipolar Depression. I will try [facility] to see if he is still approved for there for treatment. He stated that they approved him when he was in [facility]. Patient denied known discharge needs at this time. CM will continue to follow and will assist as needed with dc plans/needs. Adzing And Boring Machine Operator: Jie Naranjo DCPIA - Discharge Planning Initial Assessment Updated by [id number]: Jie Naranjo on 06/25/18 4:41 pm * Is the patient Alert and Oriented? Yes * PCP [facility] MARTELL * Pharmacy [facility] * Preadmission Environment Homeless * ADLs Independent * Equipment None * List name and contact numbers for known caregivers / representatives who currently or will assist patient after discharge: KODY SIMMS JUNE ([phone]) * Verbal permission to speak to the caregivers and representatives has been obtained from the patient. N/A * Community resources currently utilized None * Additional services required to return to the preadmission environment? Yes * Can the patient safely return to the preadmission environment? Yes * Has this patient been hospitalized within the prior 30 days at any hospital? No Last DP export: 07/01/18 10:37 a Patient Name: MARCO RIVERS Page [phone] at 1641 All edits/amendments must be made on the electronic document DICTATION DATE: 07/02/181646 HEAVY EQUIPMENT TECHNICIAN: REBEKAH 07/02/181646 RPT#: [id number] DC DATE:07/01/18 STATUS: DIS IN [facility] [address] [place] [address] END OF REPORT
== END 2018-07-01 14:27 | disposition home or self-care (01) | DRG 483 ==
LOC: D.ER 02:43 → D.MS 06:14 → D.EDHOLD 06:14 → D.MS 06:35
PROVIDERS: Emergency Medicine; Family Medicine; Orthopaedic Surgery; ADMIT Internal Medicine Nephrology; ATTEND Internal Medicine Nephrology
PROC: 0RRJ00Z Replacement of Right Shoulder Joint with Reverse Ball and Socket Synthetic Substitute, Open Approach (ICD-10-PCS; principal; 2018-06-26 12:00)
DX: S42.201A Unspecified fracture of upper end of right humerus, initial encounter for closed fracture (principal); S02.2XXB Fracture of nasal bones, initial encounter for open fracture; M62.82 Rhabdomyolysis; K92.1 Melena; F10.239 Alcohol dependence with withdrawal, unspecified; M87.9 Osteonecrosis, unspecified; F10.220 Alcohol dependence with intoxication, uncomplicated; D64.9 Anemia, unspecified

== ENCOUNTER 2018-10-24 19:17 | Inpatient (IN) | payer MEDICAID ==
[~2018-10-24] VITALS: Ht 180.3 cm; Wt 81.8 kg
[~2018-10-24 19:17] MED LIST: CATAPRES0.1 MG PO; FOLIC ACID1 MG PO; GEODON20 MG; GEODON60 MG PO; HYDROCODON-ACE1 EA10 PO; LISINOPRIL10 MG PO; LISINOPRIL2.5 MG; VITAMIN B-1100 M1 PO
--- NOTE | 2018-10-24 19:28 | NUR ---
PATIENT ARRIVED PER EMS IN C COLLAR, MD TO BEDSIDE, C COLLOAR REMOVED PER MD ORDER. TRAUMA BAND # [id number], PATIENT O&A X3
[2018-10-24 19:55] LABS: BASOPHILS 0.3 % (0-2); EOSINOPHILS 3.8 % (0-7); HEMATOCRIT 41.6 % (42.0-54.0); HEMOGLOBIN 15.6 g/dL (13.5-17.5); IMMATURE GRANULOCYTES 1.5 % (0-5); LYMPHOCYTES 26.4 % (15-50); MCH 34.7 pg (26.0-34.0); MCHC 37.5 g/dL (31.0-37.0); MCV 92.4 fL (80.0-100.0); MONOCYTES 10.7 % (2-11); NEUTROPHILS 57.3 % (40-80); RDW 12.5 % (11.5-14.5); WBC 8.7 10x3/uL (4.8-10.8)
[2018-10-24 19:57] LABS: PLATELET COUNT 178 10x3/uL (130-400)
--- NOTE | 2018-10-24 19:58 | NUR ---
PT IN AFTER STUMBLING AND FALLING, FELL ON HIS FACE. DENIES LOC, ARRIVED IN C-COLLAR, DENIES NECK PAIN. BLEED OVER ENTIRE FACE FROM LACERATION TO RIGHT FOREHEAD, BLEEDING HAS STOPPED. PATIENT ANSWERING QUESTIONS APPROPRIATELY AT THIS TIME. GOING TO CT.
[2018-10-24 20:09] LABS: ALBUMIN 3.3 g/dL (3.4-5.0); ALKALINE PHOSPHATASE 103 U/L (46-116); ALT (SGPT) 32 U/L (10-68); BILIRUBIN - TOTAL 0.45 mg/dL (0.2-1.3); CALC OSMOLALITY 265 mosm/kg (275-300); CALCIUM 8.5 mg/dL (8.5-10.1); CARBON DIOXIDE 25.9 mmol/L (21.0-32.0); CHLORIDE - SERUM 97 mmol/L (98-107); CREATININE - SERUM 0.8 mg/dL (0.6-1.3); GLUCOSE 103 mg/dL (74-106); POTASSIUM - SERUM 4.4 mmol/L (3.5-5.1); PROTEIN - SERUM 6.4 g/dL (6.4-8.2); SODIUM 134 mmol/L (136-145); UREA NITROGEN 8 mg/dL (7-18); eGFR NON AFRICAN AMERICAN > 90 mL/min (90-120)
[2018-10-24 20:16] LABS: CREATINE KINASE 166 UL (21-232); LIPASE 111 U/L (73-393); MAGNESIUM - SERUM 1.8 mg/dL (1.8-2.4)
--- NOTE | 2018-10-24 20:16 | NUR ---
UNABLE TO SCAN BANANA BAG, MIXED IN THE ER, PHARMACY NOT AVAILABLE.
[2018-10-24 20:20] LABS: TROPONIN-I 0.159 ng/mL (0.000-0.060)
[2018-10-24 20:30] VITALS: BP 127/77
--- NOTE | 2018-10-24 20:55 | NUR ---
PROVIDER TO BEDSIDE, PLACED 5 PEREZ TO RIGHT SIDE OF HEAD, PATIENT TOLERATED PROCEDURE WELL.
[2018-10-24 21:00] VITALS: BP 131/82
[2018-10-24 21:06] LABS: APPEARANCE CLEAR (CLEAR); BILIRUBIN NEGATIVE (NEGATIVE); COLOR STRAW (YELLOW); GLUCOSE NEGATIVE (NEGATIVE); KETONE NEGATIVE (NEGATIVE); NITRITE NEGATIVE (NEGATIVE); PROTEIN NEGATIVE (NEGATIVE); UROBILINOGEN NORMAL (NORMAL)
[2018-10-24 21:08] LABS: UDS - AMPHET NEGATIVE QUAL (NEGATIVE); UDS - BARB NEGATIVE QUAL (NEGATIVE); UDS - BENZO NEGATIVE QUAL (NEGATIVE); UDS - COCAINE NEGATIVE QUAL (NEGATIVE); UDS - OPIATE NEGATIVE QUAL (NEGATIVE); UDS - PCP NEGATIVE QUAL (NEGATIVE); UDS - THC NEGATIVE QUAL (NEGATIVE)
--- NOTE | 2018-10-24 22:10 | NUR ---
2210 PT ADMIT TO ROOM 2116 FROM ER VIA STRETCHER. LETHARGIC, WANTS TO SLEEP. LEFT A/C PIV WITH BANANA BAG INFUSING AND NS @ 125ML/HR INFUSING. ADMISSION ASSESSMENT AND HISTORY COMPLETED. DENIES TAKING HIS HOME MEDS RECENTLY. LACERATION TO RIGHT SIDE OF HEAD WITH PEREZ INTACT. PLAN OF CARE INITIATED. CALL LIGHT IN REACH.
[2018-10-24 22:21] VITALS: BP 123/77; BMI 25.1
[2018-10-25 04:00] VITALS: BP 143/89
[2018-10-25 05:13] LABS: BASOPHILS 0.3 % (0-2); EOSINOPHILS 3.2 % (0-7); HEMATOCRIT 39.6 % (42.0-54.0); HEMOGLOBIN 14.3 g/dL (13.5-17.5); IMMATURE GRANULOCYTES 1.3 % (0-5); LYMPHOCYTES 24.8 % (15-50); MCH 33.7 pg (26.0-34.0); MCHC 36.1 g/dL (31.0-37.0); MCV 93.4 fL (80.0-100.0); MEAN PLATELET VOLUME 8.5 fL (7.4-10.4); MONOCYTES 11.7 % (2-11); NEUTROPHILS 58.7 % (40-80); PLATELET COUNT 147 10x3/uL (130-400); RBC 4.24 10x6/uL (4.20-6.10); RDW 12.7 % (11.5-14.5)
[2018-10-25 05:15] LABS: WBC 6.3 10x3/uL (4.8-10.8)
[2018-10-25 05:57] LABS: ALBUMIN 2.9 g/dL (3.4-5.0); ALKALINE PHOSPHATASE 96 U/L (46-116); ALT (SGPT) 31 U/L (10-68); BILIRUBIN - TOTAL 0.36 mg/dL (0.2-1.3); CALC OSMOLALITY 277 mosm/kg (275-300); CALCIUM 7.9 mg/dL (8.5-10.1); CARBON DIOXIDE 25.5 mmol/L (21.0-32.0); CHLORIDE - SERUM 106 mmol/L (98-107); CREATININE - SERUM 0.9 mg/dL (0.6-1.3); GLUCOSE 86 mg/dL (74-106); POTASSIUM - SERUM 4.4 mmol/L (3.5-5.1); PROTEIN - SERUM 5.8 g/dL (6.4-8.2); SODIUM 141 mmol/L (136-145); UREA NITROGEN 6 mg/dL (7-18); eGFR NON AFRICAN AMERICAN > 90 mL/min (90-120)
[2018-10-25 05:58] LABS: TROPONIN-I 0.136 ng/mL (0.000-0.060)
--- NOTE | 2018-10-25 06:00 | NUR ---
PT HAS RESTED/SLEPT SINCE ADMIT TO FLOOR. SR PER TELEMETRY. NO REQUESTS FOR AND REPORTS OF PAIN. ROUSES EASILY TO VERBAL STIMULI. NPO UNTIL SEEN BY ETL ARCHITECT. IV NS @ 125ML/HR INFUSING TO LEFT A/C. CPOC.
--- NOTE | 2018-10-25 08:01 | NUR ---
ALERT AND ORIENTED X4. UP TO BATHROOM. SINUS RHYTHM 92 ON TELEMETRY. DENIES ANY NEEDS. CONTINUE PLAN OF CARE AND SAFETY PRECAUTIONS.
[2018-10-25 09:05] VITALS: BP 170/90
[2018-10-25 11:14] VITALS: Ht 180.3 cm; Wt 81.8 kg
[2018-10-25 12:31] VITALS: BP 154/85
[2018-10-25 14:07] LABS: % SATURATION 85 % (15-55); IRON 248 ug/dl (35-150); TOTAL IRON BIND CAPACITY 291 ug/dl (260-445); UNSAT IRON BIND CAPACITY 43 ug/dl (150-375)
[2018-10-25 17:41] VITALS: BP 172/107
--- NOTE | 2018-10-25 18:35 | NUR ---
ALERT AND ORIENTED X4. SITTING UP IN BED. DENIES ANY NEEDS AT THIS TIME. DENIES SOB OR PAIN. CONTINUE PLAN OF CARE AND SAFETY PRECAUTIONS. SINUS RHYTHM 85 ON TELEMETRY.
[2018-10-25 20:00] VITALS: BP 151/85
--- NOTE | 2018-10-25 20:00 | NUR ---
INITIAL ROUNDS AND ASSESSMENT COMPLETED. PT RESTING IN BED WITH NO DISTRESS. VSS. NONLABORED RESPIRATIONS ON ROOM AIR. LEFT A/C WITH NS @ 125ML/HR AND BANANA BAG ALSO INFUSING. SR PER TELEMETRY. PT NOW BEING ASSISTED TO TAKE A SHOWER BY STAFF. PEREZ TO TOP/RIGHT SIDE OF HEAD C/D/I. ABRASION ALSO TO TOP OF HEAD/FOREHEAD. CPOC.
--- NOTE | 2018-10-25 21:10 | NUR ---
BEDTIME MEDS GIVEN. BEDTIME SNACK GIVEN.
--- NOTE | 2018-10-25 22:00 | NUR ---
ADMIT TO ROOM 2114 FROM ER. ALERT/ORIENTED. GOWNED AND INTO BED. INSTRUCTED ON PLAN OF CARE/NPO AFTER MIDNIGHT. ADMISSION HISTORY AND ASSESSMENT COMPLETED. SNACK/FLUIDS PROOVIDED AT THIS TIME.
[2018-10-26 00:01] VITALS: BP 155/96
[2018-10-26 04:00] VITALS: BP 148/84
[2018-10-26 05:36] LABS: BASOPHILS 0.2 % (0-2); EOSINOPHILS 3.9 % (0-7); HEMATOCRIT 36.4 % (42.0-54.0); HEMOGLOBIN 12.9 g/dL (13.5-17.5); IMMATURE GRANULOCYTES 0.9 % (0-5); LYMPHOCYTES 17.2 % (15-50); MCH 33.5 pg (26.0-34.0); MCHC 35.4 g/dL (31.0-37.0); MCV 94.5 fL (80.0-100.0); MEAN PLATELET VOLUME 8.6 fL (7.4-10.4); NEUTROPHILS 65.8 % (40-80); PLATELET COUNT 131 10x3/uL (130-400); RBC 3.85 10x6/uL (4.20-6.10); RDW 12.3 % (11.5-14.5); WBC 5.7 10x3/uL (4.8-10.8)
--- NOTE | 2018-10-26 05:36 | NUR ---
PT HAS RESTED WITH NO DISTRESS. MVI BAG COMPLETED AND IV NS NOW UP AND INFUSING. NO CHANGE FROM INITIAL SHIFT ASSESSMENT. CPOC.
[2018-10-26 06:06] LABS: ALBUMIN 2.6 g/dL (3.4-5.0); ALKALINE PHOSPHATASE 97 U/L (46-116); BILIRUBIN - TOTAL 0.58 mg/dL (0.2-1.3); CALCIUM 7.9 mg/dL (8.5-10.1); CARBON DIOXIDE 27.7 mmol/L (21.0-32.0); CHLORIDE - SERUM 108 mmol/L (98-107); CREATININE - SERUM 0.8 mg/dL (0.6-1.3); GLUCOSE 88 mg/dL (74-106); MAGNESIUM - SERUM 2.2 mg/dL (1.8-2.4); POTASSIUM - SERUM 4.2 mmol/L (3.5-5.1); PROTEIN - SERUM 5.6 g/dL (6.4-8.2); SODIUM 142 mmol/L (136-145); eGFR NON AFRICAN AMERICAN > 90 mL/min (90-120)
[2018-10-26 06:07] LABS: ALT (SGPT) 22 U/L (10-68); CALC OSMOLALITY 279 mosm/kg (275-300); UREA NITROGEN 8 mg/dL (7-18)
--- NOTE | 2018-10-26 07:40 | NUR ---
ALERT AND ORIENTED X4. SITTING UP IN BED. DENIES PAIN OR SOB. SINUS RHYTHM 75 ON TELEMETRY. DENIES ANY NEEDS AT THIS TIME. CONTINUE PLAN OF CARE AND SAFETY PRECAUTIONS.
[2018-10-26 08:47] VITALS: BP 169/101
[2018-10-26 12:05] VITALS: BP 123/68
[2018-10-26] MEDS ORDERED: PROTONIX40 MG PO (13:49)
[2018-10-26] MEDS ORDERED: METOPROLOL TART50 MG PO (13:49)
[2018-10-26 16:10] VITALS: BP 179/97
--- NOTE | 2018-10-26 18:08 | MORECARE ---
CASE MANAGEMENT DISCHARGE SUMMARY PATIENT: MARCO RIVERS UNIT: [id number] ADM DATE: 10/25/18 AGE: 48 : 66 SEX: M ROOM/BED: D.[facility]6 AUTHOR: SWAPNA JOHNSTON PHYSICIAN: REFERRING PHYSICIAN: POPPY WHITE MD DATE OF SERVICE: 10/26/18 Discharge Plan Patient Name: MARCO RIVERS [facility] : 1970 Planned Disposition: Home Anticipated Discharge Date: 10/26/18 Discharge Date: Expected LOS: 1 Initial Reviewer: [email or web address] Initial Review Date: 10/26/2018 Generated: 10/26/18 7:08 pm DCPIA - Discharge Planning Initial Assessment Updated by [email or web address]: Keith Mahajan on 10/26/18 6:07 pm * Is the patient Alert and Oriented? Yes * How many steps to enter\exit or inside your home? NONE * PCP [facility] [place] * Pharmacy [facility] * Preadmission Environment Home with Family * ADLs Independent * Equipment None * Other Equipment NO MEDICAL EQUIPMENT PROVIDER PREFERNECE * List name and contact numbers for known caregivers / representatives who currently or will assist patient after discharge: MALIHA GIVENS, FRIEND, * Verbal permission to speak to the caregivers and representatives has been obtained from the patient. N/A * Community resources currently utilized None * Please name any agencies selected above. NONE * Additional services required to return to the preadmission environment? No * Can the patient safely return to the preadmission environment? Yes * Has this patient been hospitalized within the prior 30 days at any hospital? No Patient Name: MARCO RIVERS Page [phone] at 1808 All edits/amendments must be made on the electronic document DICTATION DATE: 10/26/181807 FOOD TASTER: REBEKAH 10/26/181807 RPT#: [id number] DC DATE: STATUS: ADM IN [facility] [address] [place] [id number] END OF REPORT
--- NOTE | 2018-10-26 18:15 | MORECARE ---
CASE MANAGEMENT DISCHARGE SUMMARY PATIENT: MARCO RIVERS UNIT: [id number] ADM DATE: 10/25/18 AGE: 48 : 66 SEX: M ROOM/BED: D.2116 AUTHOR: PRESTON,DOC PHYSICIAN: REFERRING PHYSICIAN: POPPY WHITE MD DATE OF SERVICE: 10/26/18 Discharge Plan Patient Name: MARCO RIVERS Facility: [facility]:[place] : 1970 Planned Disposition: Home Anticipated Discharge Date: 10/26/18 Discharge Date: Expected LOS: 1 Initial Reviewer: [email or web address] Initial Review Date: 10/26/2018 Generated: 10/26/18 7:15 pm Comments DCP- Discharge Planning Updated by [email or web address]: Keith Mahajan on 10/26/18 5:[address] Patient Name: MARCO RIVERS Admission Status: ER Accout number: [id number] Admission Date: 10-25-2018 : 1970 Admission Diagnosis: Attending: POPPY WHITE Current LOS: 1 Anticipated DC Date: 10-26-2018 Planned Disposition: Home Primary Insurance: MEDICAID [place] Discharge Planning Comments: CM MET WITH PT IN ROOM TO DISCUSS DISCHARGE PLANNING AND NEEDS. PT REPORTS LIVING AT HOME INDEPENDENTLY WITH A FRIEND. PT HAS NO MEDICAL EQUIPMENT AND NO OUTSIDE SERVICES ASSISTING IN THE HOME. CM DISCUSSED AVAILABILITY OF HOME HEALTH, REHAB SERVICES AND MEDICAL EQUIPMENT. PT DENIES DISCHARGE NEEDS, REPORTS WANTING A TAXI FOR TRANSPORT HOME. CM EXPLAINED PT HAS HAD ON THIS YEAR AND NEEDS TO THINK ABOUT HIS PERSONAL SUPPORT SYSTEM AND OFFERED TO ASSIST IN CALLING A FRIEND. PT REPORTS HE CAN RIDE THE BUS, HAS $2 IN HIS WALLET; PT SHOWED CM HIS FUNDS FOR TRANSPORT HOME. CM OFFERED ALCOHOL TREATMENT AND COMMUNITY SUPPORT INFORMATION PT HAD FALLEN AFTER DRINKING ALCOHOL. PT DENIED NEED OF INFORMATION, DENIES ADDICTION AND NEED FOR TREATMENT OR RESOURCES. Contact Officer: Keith Mahajan DCPIA - Discharge Planning Initial Assessment Updated by [email or web address]: Keith Mahajan on 10/26/18 6:07 pm * Is the patient Alert and Oriented? Yes * How many steps to enter\exit or inside your home? NONE * PCP [facility]ICAID DOCTOR [facility] [place] * Pharmacy [facility] * Preadmission Environment Home with Family * ADLs Independent * Equipment None * Other Equipment NO MEDICAL EQUIPMENT PROVIDER PREFERNECE * List name and contact numbers for known caregivers / representatives who currently or will assist patient after discharge: MALIHA GIVENS, FRIEND, * Verbal permission to speak to the caregivers and representatives has been obtained from the patient. N/A * Community resources currently utilized None * Please name any agencies selected above. NONE * Additional services required to return to the preadmission environment? No * Can the patient safely return to the preadmission environment? Yes * Has this patient been hospitalized within the prior 30 days at any hospital? No Last DP export: 10/26/18 5:08 pm Patient Name: MRACO RIVERS Page [phone] at 1815 All edits/amendments must be made on the electronic document DICTATION DATE: 10/26/181814 PUBLICITY PERSON: REBEKAH 10/26/181814 RPT#: [id number] DC DATE: STATUS: ADM IN [facility] [address] [place] [address] END OF REPORT
--- NOTE | 2018-10-26 19:24 | NUR ---
ALERT AND ORIENTED X4. DISCHARGE INSTRUCTIONS GIVEN VERBALLY AND WRITTEN. DISCHARGE PAPERS SIGNED ON CHART. DC LT FA IV TIP INTACT. CAB CALLED FOR TRANSPORT TO [facility]. AIRPLANE PILOT CHIEF OBTAINING VOUCHAR FOR TRANSPORT.
--- NOTE | 2018-10-28 14:32 | ST ---
PATIENT:MARCO RIVERS MEDICAL RECORD: [id number] SEX: M LOCATION:D. D.211 ORDER #: ADMISSION DATE: 10/25/18 AGE OF PATIENT: 48 REFERRING PHYSICIAN: INTERPRETING PHYSICIAN: CORY DUNLAP MD DATE OF SERVICE: 10/26/2018 PROCEDURE: Exercise stress test. INDICATIONS: Elevated troponin. He was exercised on standard Rubin protocol for 4 minutes, terminated due to shortness of breath and unsteadiness. No chest pain. No chest discomfort, no EKG changes, no dysrhythmias. OVERALL IMPRESSION: Negative for inducible ischemia at adequate cardiac workload. TRANSINT:[id number] Voice Confirmation ID: [id number] DOCUMENT ID: [id number] CORY DUNLAP MD at 1432 CC: [id number] DICTATION DATE: 10/26/18 1140 CHROMOSOMAL DISORDERS COUNSELOR: 10/27/18 0157 DIS IN 10/26/18 [facility] [address] [place] [address]
--- NOTE | 2018-10-28 14:32 | EC ---
PATIENT:MARCO RIVERS DATE OF SERVICE: 10/25/18 SEX: M MEDICAL RECORD: [id number] DATE OF : [birth year] LOCATION:D.M2 D.211 AGE OF PATIENT: 48 ADMISSION DATE: 10/25/18 REFERRING PHYSICIAN: INTERPRETING PHYSICIAN: CORY ALEXANDER MD ECHOCARDIOGRAM REPORT ECHO CHARGES 4 ECHO COMPLETE Date: 10/25/18 CLINICAL DIAGNOSIS: TROP ECHOCARDIOGRAPHIC MEASUREMENTS (adult normal given) AC root (d.<3.7cm) 3.4 cm LV Septum d (<1.2 cm> 1.2 cm Valve Excursion 2.2 cm LV Septum (systole) 1.5 cm Left Atria (s.<4.0cm> 3.1 cm LVPW d(<1.2cm) 1.1 cm RV (d.<2.3cm) 2.5 cm LVPW (sytole) 1.7 cm LV diastole(<5.6CM) 5.8 cm MV E-F(>70mm/sec) cm LV systole 4.4 cm LVOT Diameter 2.2 cm MV exc.(>10mm) cm Est.ejection fraction (50-75%) % DOPPLER: LVIT cm/sec A 75 cm/sec E 80 cm/sec LA cm/sec RVSP 25.6 mmHg LVOT 128 cm/sec AOP1/2T m/s Asc. Ao 156 cm/sec RVOT 67 cm/sec RA cm/sec PA 108 cm/sec AV Gradient Peak 9.7 mmHg AV Mean 4.9 mmHg AV Area 3.5 cm MV Gradient Peak 5.1 mmHg MV Mean 2.6 mmHg MV Area cm COMMENTS: Label Tacker: Too STEVEKAN RICH Residential Leasing Manager: 1 Dr. Alexander TAPE# PACS Pericardial Effusion N DATE OF SERVICE: 10/25/2018 FINDINGS: 1. Left ventricular chamber size is within normal limits. Left ventricular systolic function is normal at 55%. 2. Left atrium is within normal limits. Right atrium and right ventricle chamber sizes are mildly dilated. 3. Valvular structures have normal structure and motion. 4. Doppler interrogation reveals [id number]-cb-[id number] tricuspid regurgitation, no other valvular insufficiency or stenosis. Pulmonary systolic pressure is normal ECHOCARDIOGRAM REPORT [id number] MARCO RIVERS estimated at 26 mmHg. 5. No evidence of pericardial effusion or left ventricular thrombus. TRANSINT:[id number] Voice Confirmation ID: [id number] DOCUMENT ID: [id number] CORY ALEXANDER MD at 1432 CC: [id number] DICTATION DATE: 10/25/182310 REFUELING RAMP ATTENDANT: 10/26/18 0245 DIS IN 10/26/18 [place] [id number] [place] [id number]
--- NOTE | 2018-10-28 14:32 | CN ---
PATIENT NAME:MARCO RIVERS MEDICAL RECORD: [id number] : [birth year] LOCATION:D. D.2116 ADMIT DATE: 10/25/18 ACCOUNT: [id number] CONSULTING PHYSICIAN: CORY DUNLAP MD REFERRING PHYSICIAN: POPPY WHITE MD DATE OF CONSULTATION: 10/25/2018 CARDIOLOGY CONSULTATION DIAGNOSES: 1. Increased troponin. 2. ETOH abuse. 3. Fall. 4. Hypertension. HISTORY OF PRESENT ILLNESS: Mr. Rivers presented to the Emergency Room with ETOH abuse and a fall resulting in a skull laceration requiring attention and for some reason, a troponin was drawn, which was mildly elevated. He has no cardiac history. Denies any chest pain or chest discomfort. No shortness of breath. He does have a long history of ETOH abuse. He as well has hypertension. He is on lisinopril, clonidine for his blood pressure at home. Since he has been admitted, his systolic blood pressure has been in the 130-140 range. Pulse rate has been high in the 90-100 range. PHYSICAL EXAMINATION: CONSTITUTIONAL/GENERAL APPEARANCE: Well nourished, well developed, appears stated age. EYES: Lids and conjunctivae noninjected. No discharge. No pallor. ENT: Lips within normal limit. No cyanosis. No pallor. NECK: Carotid arteries, bilateral normal upstroke. No bruits. No thrills. No jugular venous pressure or distention. CERVICAL LYMPH NODES: Nontender. Nonenlarged. THYROID: Not enlarged. No nodules. CARDIOVASCULAR: Precordial exam, nondisplaced. No heaves or pericardial thrills. Rate and rhythm, regular. Heart sounds, normal S1, normal S2. No S3, no gallop, no rub. Systolic murmur, not heard. Diastolic murmur, not heard. RESPIRATORY: Respiratory effort, unlabored. Normal curvature. No thoracic deformity. No chest wall tenderness. Percussion, resonant. Auscultation, clear. No wheezes, no rales, no rhonchi. ABDOMEN: Soft, nondistended, nontender. No abdominal pain, no vomiting and normal appetite. MUSCULOSKELETAL: No joint tenderness, normal gait, normal tone. SKIN: Warm and dry. OVERALL IMPRESSION: Increased troponin. At this time, he is not interested in an extensive cardiac workup as he has no symptomatology. We will discontinue his lisinopril and change this to a beta madi to get better heart rate and blood pressure control. We will get an echocardiogram to rule out an alcoholic cardiomyopathy. If he is still here tomorrow, we will do stress testing as well. TRANSINT:[id number] Voice Confirmation ID: [id number] DOCUMENT ID: [id number] CONSULT REPORT [id number] MARCO RIVERS JEFFREY MD at 1432 CC: [id number] DICTATION DATE: 10/25/18 1111 CRIMPER ASSEMBLER: 10/25/18 1216 DIS IN 10/26/[address] [facility] [address] [place] [address]
== END 2018-10-26 19:46 | disposition home or self-care (01) | DRG 897 ==
LOC: D.ER 19:17 → D.M2 20:41 → OBSVTIME 20:41 → D.M2 10-25 17:14
PROVIDERS: Family Medicine; ADMIT Internal Medicine Nephrology; ATTEND Internal Medicine Nephrology
PROC: 0HQ0XZZ Repair Scalp Skin, External Approach (ICD-10-PCS; principal; 2018-10-24)
DX: F10.129 Alcohol abuse with intoxication, unspecified (principal); E87.1 Hypo-osmolality and hyponatremia; Y90.8 Blood alcohol level of 240 mg/100 ml or more; F17.213 Nicotine dependence, cigarettes, with withdrawal; S01.01XA Laceration without foreign body of scalp, initial encounter; W01.0XXA Fall on same level from slipping, tripping and stumbling without subsequent striking against object, initial encounter; I10 Essential (primary) hypertension; D64.9 Anemia, unspecified; R79.89 Other specified abnormal findings of blood chemistry